=== PATIENT | male | born 1980 | race Caucasian/White ===

== ENCOUNTER 2019-03-03 07:08 | Day surgery (SDC) | payer OTHER, SELFPAY ==
[2019-03-03 07:38] VITALS: BP 142/82; PULSE 72; RESP 18; TEMP 36.7; O2SAT 97; BMI 30.7
--- NOTE | 2019-03-03 08:45 | SEP_PTH ---
PATIENT: FRANK GIPSON [place]: [facility] [place][id number] AGE/SX: 38/M ROOM: RE03/03/[address]: Dr. Gonzalo Childs MD : 1980 BED: DIS: 03/03/2019 SPEC #: [id number] RECD: 03/03/19 14:46 STATUS: АЛЕКСАНДР FELTON #: [id number] ELAINE: 03/03/19 08:[address]: Gonzalo Childs DEPT: SURGICAL PATHOLOGY RECD BY: Bessie Kelly ENTERED: 03/06/19 10:26 SP TYPE: SEPTUM OTHR DR: Dr. Alexey Rosenberg MD Tissues: A - Nasal septum, NOS B - Nasal turbinate, NOS C - Nasal turbinate, NOS Procedures: Decalcification bone/plaque Surgery Specimen Level III Surgery Specimen Level IV HEADER OPERATION: Septoplasty, submucous resection inferior turbinates PRE-OP DIAGNOSIS: Deviated nasal septum, hypertrophy nasal turbinates TISSUE SUBMITTED: A. Nasal septum contents, B. Contents of submucosal resection of left inferior turbinates, C. Contents of submucosal resection right inferior turbinates MICROSCOPIC DIAGNOSIS A. Nasal septum contents: Fragments of bone and cartilage, clinically deviated nasal septum. B. Contents of submucosal resection of left inferior turbinates: Fragments of respiratory mucosa with mild chronic inflammation. C. Contents of submucosal resection of right inferior turbinates: Scant fragment of respiratory mucosa with chronic inflammation. One fragment of mucosal tissue consistent with squamous papilloma. Fragments of squamous epithelium. Bacterial colonies consistent with actinomyces. See comment. SJ:tesha 03/09/19 COMMENT C. Clinical correlation and appropriate follow up are necessary. Case has been reviewed in consultation with Dr. Mancia who concurs with the above diagnosis. IDC:AM MICROSCOPIC DESCRIPTION Slides are reviewed. GROSS DESCRIPTION A - Received in fixative is one container labeled with the patient's name and designated nasal septum contents. The specimen consists of multiple irregular fragments of light bledsoe to white fragments of bone and cartilage that in aggregate measure 5.5 x 5 x 0.2 cm. The specimen is totally submitted in two cassette after decalcification. B - Received in fixative is one container labeled with the patient's name and designated contents of submucosal resection of left inferior turbinate. The specimen consists of multiple gritty fragments of light bledsoe soft tissue that in aggregate measure 1 x 0.5 x 0.1 cm. The specimen is submitted in its entirety in one cassette. C - Received in fixative is one container labeled with the patient's name and designated contents of submucosal resection of right inferior turbinate. The specimen consists of multiple gritty fragments of light bledsoe soft tissue that in aggregate measure 1 x 0.2 x <0.1 cm. The specimen is submitted in its entirety in one cassette. / AM:tesha 03/06/19 TC:3 CPT: 59970 x2, 59639, 18831
[2019-03-03] MEDS: Lidocaine 4% 50 ML Bottle (09:19)
[2019-03-03] MEDS: Oxymetazoline 0.05% 1 SPRAY SPRAY.BTL 15 SPRAY (09:19)
[2019-03-03] MEDS: Bacitracin 500 UNITS/GM PACKET (10:07)
--- NOTE | 2019-03-03 10:14 | PCM.OPRPT ---
Problem List (1) Deviated nasal septum Status: Chronic (2) Hypertrophy of nasal turbinates Status: Chronic Report of Operation Date of Procedure: 03/03/19 Pre-Operative Diagnosis: Deviated nasal septum, hypertrophy of inferior nasal turbinates Post-Operative Diagnosis: Same Surgery/Procedure Performed:: Septoplasty, bilateral submucous resection of inferior nasal turbinates Description of Surgical Findings:: Chiki is a 38-year-old male who presents with chronic nasal obstruction failing relief with appropriate medical therapy. Examination showed significant nasal septal deviation with a large spur posteriorly on the left as well as hypertrophy of the inferior turbinates. The above procedure was offered hopes of improvement of these complaints and he is eager to proceed. The risks, alternatives, potential complications, and benefits were discussed at length and any questions answered to the patient and/or caregiver's satisfaction. Witnessed informed consent was obtained in the office, and the patient and/or caregiver was agreeable to proceed. Procedure went as follows: The patient was identified in the preoperative holding and brought to the operating room, was placed under general anesthesia and intubated. When appropriate anesthesia was obtained, pledgets soaked in a 50-50 mixture of oxymetazoline and 4% topical lidocaine were placed to decongest the nasal mucosa. The nasal septum was then injected beginning on the left side with 1% lidocaine with 100,000 epinephrine for a total of 6 mL. The pledgets were then removed and the left nasal cavity examined. There was noted to be significant nasal septal deviation to the left. Using a 15 blade scalpel, a hemitransfixion incision was then made on the left side and using the [place] elevator a subperichondrial/periosteal flap was elevated. The septum was then transected at the bony cartilaginous junction and a similar flap raised on the contralateral side. Using a Ana forceps, the septum was then sharply transected superiorly and the deviated portions removed with a Bennie forceps. Any inferior bony spur was then removed with a chisel allowing for midline placement of the nasal septum. The hemitransfixion incision was then closed with interrupted 4-0 chromic gut suture followed by a 4-0 plain quilting suture to reapproximate the mucosal flaps. Beginning on the left side, the anterior aspect of the inferior turbinate was then injected with 1% lidocaine with 100,000 epinephrine for a total of 2.5 mL bilaterally. Again beginning on the left side a 15 blade scalpel was used to create a stab incision in the anterior aspect of the turbinate. A caudal elevator was then used to elevate a submucosal plane. Using the microdebrider, the anterior bony and intervening submucosal tissue was then removed resulting in reduction of the inferior turbinate. Similar procedure was then completed on the contralateral side. Andersen splints were then applied after coating with bacitracin ointment and secured to the columella with a single 3-0 Prolene suture. The patient was then returned to anesthesia, was revived and extubated having tolerated the procedure well without complications. Type of Anesthesia:: General Anesthesiologist: Johnny Barr Special Medications: none Specimen's removed: nasal septal and inferior turbinate contents Drains: none Estimated Blood Loss (mL): 25 mL Fluids Replaced: 1300 mL Grafts/Implants Used: Andersen splints - Complications none - Admit VTE Documentation VTE Present on Admission: No VTE Mechan Device Prophylaxis: SCD's VTE Pharm Prophylaxis ordered?: No
--- NOTE | 2019-03-03 10:19 | DCINST_ITS ---
- Discharge Diagnoses Current Active Problems: Current Active and Chronic Problems Deviated nasal septum (Chronic) Hypertrophy of nasal turbinates (Chronic) You will use the following diet at home:: Regular Discharge Activity: Return to Normal Activity Call your doctor if your incision/area has: Sudden Increased Bleeding Call your doctor if you observe: Fever of 101 or Higher, Uncontrolled pain Allergies/Adverse Reactions: Allergies antiseptic wipe Allergy (Uncoded 02/24/19 11:04) Rash environmental Allergy (Uncoded 02/24/19 11:04) Itching Medications to take at Discharge Levocetirizine Dihydrochloride [Xyzal] 5 mg PO QHS 02/24/19 Loratadine/Pseudoephedrine [Claritin-D 12 Hour Tablet] 1 ea PO PRN PRN 02/24/19 Primary Care Physician: Alexey Rosenberg MD [Primary Care Provider] - Test Results: Test results from this visit will be discussed in further detail at your follow- up appointment, if applicable. Please Follow Up With: Gonzalo Childs MD When: 5 days
[2019-03-03 10:25] VITALS: BP 140/83; BP 142/82; PULSE 91; RESP 14; TEMP 36.3; O2SAT 96
[2019-03-03 10:46] VITALS: BP 131/86; BP 142/82; PULSE 81; RESP 14; O2SAT 94
[2019-03-03 10:50] VITALS: BP 123/95; BP 142/82; PULSE 82; RESP 16; TEMP 36.6; O2SAT 97
[2019-03-03 11:20] VITALS: BP 142/82
== END 2019-03-03 11:46 | disposition home or self-care (01) ==
LOC: SDC 07:16 → AC 07:16
PROVIDERS: Family Provider Family Medicine; PCP Family Medicine; Referring Provider Otolaryngology; Visit Provider Otolaryngology
PROC: (CPT 30520; principal; 2019-03-03 08:30)
DX: J34.2 Deviated nasal septum (principal); J34.3 Hypertrophy of nasal turbinates; I10 Essential (primary) hypertension; Z79.899 Other long term (current) drug therapy
CPT/HCPCS: 00160; 30140; 30520; 88304; 88305; 88311; J7120; J2405

== ENCOUNTER 2020-12-13 20:44 | Emergency (ER) | payer OTHER, SELFPAY ==
[2020-12-13 20:44] VITALS: BP 130/88; PULSE 83; RESP 16; TEMP 37.4; O2SAT 93; BMI 31.0
--- NOTE | 2020-12-13 21:35 | EKG12_ITS ---
Test Reason : DYSRHYTHMIA Blood Pressure : / mmHG Vent. Rate : 087 BPM Atrial Rate : 087 BPM P-R Int : 160 ms QRS Dur : 092 ms QT Int : 366 ms P-R-T Axes : 062 007 044 degrees QTc Int : 440 ms Normal sinus rhythm Normal ECG Confirmed by JAMES MAY, JIN ([id number]), assistant film editor JAN URRUTIA ([id number]) on 12/17/2020 10:17:49 A M Referred By: CATHERINE Confirmed By:CRISTIANO RAMIREZ MD
--- NOTE | 2020-12-13 21:36 | EDS_ITS ---
HPI History of Present Illness Chief Complaint: Shortness of Breath Informant: patient Onset/Context/Timing Onset: Weeks (3) Context: gradual and - (Worse in the past 2 or 3 days, especially yesterday) Timing: Intermittent Quality: Positive for Wheezing Current Severity: Gone Maximum Severity: Moderate Worsened by: Exertion and Coughing Relieved by: Rest and Albuterol Associated Symptoms cough, rhinorrhea and clear sputum; Negative for fever, sore throat or chills Chest Pain: Positive for Tightness (Correlates with wheezing) Narrative Narrative: Patient with history of seasonal allergies and no asthma that he knows of presenting with wheezing and seasonal rhinitis symptoms along with watery eyes, sneezing, rhinorrhea, productive cough occasionally for 3 weeks that has been worse in the last couple days. He does not have any pleuritic pain but when he takes a deep breath it makes him cough more which leads to more dyspnea. Denies any DVT risk factors, no history of 1, no leg pain or swelling, no injuries. He has been fully vaccinated with the last of the 2 Covid vaccines being obtained 3-4 weeks ago. He never had Covid that he knows of and he has had no contact with anyone with Covid that he knows of recently. He has had no fevers and chills, but he has been watching his oxygen levels in the last couple days, with a home pulse oximeter. It was 90-94% today when he was feeling better, hence coming to the emergency department for further evaluation. He does see an loan review manager and has had allergy shots and takes allergy medication. [facility] Medical History (Updated 12/13/20 @ 22:[address] Eliel Britton MD) Hernia Seasonal allergies Home Medications levocetirizine 5 mg PO QHS 02/24/19 [History Last Taken Unknown] loratadine-pseudoephedrine 1 ea PO PRN PRN 02/24/19 [History Last Taken Unknown] acetaminophen 650 mg PO Q4H PRN PRN tab 03/03/19 [Rx Last Taken Unknown] ibuprofen 400 mg PO Q6H PRN PRN tab 03/03/19 [Rx Last Taken Unknown] prednisone 10 mg PO DAILY #48 tablet 12/13/20 [Rx Last Taken Unknown] Allergy/AdvReac Type Severity Reaction Status Date / Time antiseptic wipe Allergy Rash Uncoded 12/13/20 20:44 environmental Allergy Itching Uncoded 12/13/20 20:44 Social History Smoking Status: Never smoker ROS ROS ED Constitutional Constitutional ED: Denies chills or fever(s) Eyes Eyes: Denies change in vision or diplopia ENT ENT ED: Denies sore throat Cardiovascular Cardiovascular: Reports as per HPI and chest pain; Denies palpitations Respiratory/Chest Respiratory/Chest: Reports as per HPI, chest tightness, dyspnea, dyspnea on exertion and wheezing Gastrointestinal Gastrointestinal: Denies abdominal pain, diarrhea, nausea or vomiting Genitourinary Genitourinary ED: Denies dysuria or hematuria Musculoskeletal Musculoskeletal: Denies back pain or neck pain Integumentary Denies abscess or rash Neurologic Neurologic: Denies headache(s), paresthesias or weakness Psychiatric Psychiatric: Denies anxiety or suicidal thoughts EXAM Physical Exam Const Vital Signs: 12/13/20 20:44 12/13/20 21:52 Temperature 99.4 F H Temperature Source Temporal Pulse Rate 83 Respiratory Rate 16 Respiratory Effort Normal Respiratory Depth Normal Respiratory Pattern Normal Blood Pressure 130/88 H Blood Pressure Mean 102 Pulse Ox 93 Oxygen Delivery Method Room Air Positive well nourished and well developed General Appearance ED: well developed and NAD HEENT Reports moist mucous membranes normocephalic and atraumatic Eyes PERRL and EOMs intact bilaterally Neck full ROM and supple Resp normal respiratory effort and clear to auscultation bilaterally Cardio regular rate, regular rhythm and no murmurs Rate: Negative for tachycardic GI non-tender and non-distended Auscultation: normoactive bowel sounds Palpation: soft Back/Spine no CVA tenderness General Back: other FROM Extremity normal to inspection General Extremety ED: Negative for edema, pulses abnormal or tenderness General Extremity: Negative for edema or pulses abnormal Neuro oriented x3, CN's II-XII intact bilaterally and no sensory deficits noted Sensorium / Orientation: awake and alert Motor Exam: strength 5/5 throughout Skin no rashes or lesions noted and no wounds MDM MDM MDM Narrative Medical decision making narrative: Patient does have further improvement after a duo nebulizer treatment. He was also given Solu-Medrol, his work-up is negative including 1 view chest x-ray which on my interpretation is normal. His EKG is normal. I did a Covid swab to confirm that is negative which it is. I think this is probably reactive airway disease in relation to seasonal allergies. Will place him on steroids and advised that he follow-up with his loan review manager. I do not think he needs further testing for pulmonary embolus, his PERC score is 0. Lab Data Labs: Laboratory Results - last 24 hr 12/13/20 12/13/20 21:35 21:35 WBC 9.4 RBC 5.44 Hgb 16.4 Hct 47.8 MCV 87.9 MCH 30.1 MCHC 34.3 RDW Std Deviation 41.3 RDW Coeff of Graciela 12.9 Plt Count 281 MPV 8.8 Immature Gran % (Auto) 0.300 Neut % (Auto) 46.5 L Lymph % (Auto) 29.7 [place] % (Auto) 9.5 Eos % (Auto) 13.3 H Baso % (Auto) 0.7 Absolute Neuts (auto) 4.4 Absolute Lymphs (auto) 2.80 Nucleated RBC % 0 Sodium 139 Potassium 3.9 Chloride 104 Carbon Dioxide 31.0 Anion Gap 4 L BUN 20 H Creatinine 1.14 Estim Creat Clear Calc 84.41 Est GFR (MDRD) Af Amer 91 Est GFR (MDRD) Non-Af 75 BUN/Creatinine Ratio 17.5 Glucose 116 H Calcium 9.0 Radiography Chest X-Ray - ED: 1 View, Read by ED Physician, Normal, No Acute Disease and No Infiltrates Diagnostic Testing: Radiology Impression Chest X-Ray 12/13/20 21:52 IMPRESSION: No acute cardiopulmonary process. Electronically Signed: Gisel Varela MD at 22:04 EDT Tel , Service support , Discharge Plan Triage Chief Complaint: Shortness of Breath ED Provider: Eliel Britton Dx/Rx/DC Orders Clinical Impression: Reactive airway disease, Allergic rhinitis Instructions: ED General Allergic Reactions, ED Inhaler Use Prescriptions: New prednisone 10 MG tablet 10 mg PO DAILY Qty: 48 RF: 0 No Action loratadine-pseudoephedrine 1 EACH tablet extended release 12 hr 1 ea PO PRN PRN (Reason: Allergies) RF: 0 levocetirizine 5 MG tablet 5 mg PO QHS RF: 0 acetaminophen 325 MG tablet 650 mg PO Q4H PRN PRN (Reason: Mild-Moderate Pain (1-5)) RF: 0 ibuprofen 200 MG tablet 400 mg PO Q6H PRN PRN (Reason: Mod-Severe Pain (4-05/04)) RF: 0 Primary Care Provider: Alexey Rosenberg Referrals: Alexey Rosenberg MD [Primary Care Provider] - (Or your loan review manager within the next week or so) Disposition Disposition: Home, self care
--- NOTE | 2020-12-13 21:46 | ED.RN ---
NO OLD EKGS IN MUSE
[2020-12-13] MEDS: MethylPREDNISolone 125 MG/2 ML Vial IV (21:51)
--- NOTE | 2020-12-13 21:52 | RAD_ITS ---
STUDY: X-RAY CHEST REASON FOR EXAM: Male, 40 years old. Shortness of breath. TECHNIQUE: Single frontal view of the chest. COMPARISON: None. FINDINGS: There is no focal consolidation. Normal size heart. Normal mediastinum and kaya. Normal visualized pulmonary arteries. Normal visualized aortic arch and descending thoracic aorta. Normal visualized thoracic spine. Normal visualized ribs, clavicles, and shoulders. There is no demonstrated abnormality of the visualized soft tissue structures of the upper abdomen. RAD/Chest 1 View (Portable) IMPRESSION: No acute cardiopulmonary process. Electronically Signed: Gisel Varela MD at 22:04 EDT Tel , Service support ,
[2020-12-13 21:58] LABS: Absolute Neutrophil Count 4.4 X10^3/uL (2.0-7.7); Basophil# 0.07 X10^3/uL; Basophil% 0.7 % (0-1); Eosinophil# 1.25 X10^3/uL; Eosinophils% 13.3 % (0-5); Hematocrit 47.8 % (40-54); Hemoglobin 16.4 g/dL (13.0-16.5); Lymphocyte % 29.7 % (19-41); Mean Corp Hgb Conc 34.3 g/dL (32-36); Mean Corpuscular Hgb 30.1 pg (27.0-32.0); Mean Corpuscular Volume 87.9 fL (80-94); Mean Platelet Vol. 8.8 fl (6.2-12.0); Monocyte% 9.5 % (0-10); NRBC Flagged by Analyzer 0 % (0-5); Neutrophil # 4.38 X10^3/uL (2.7-7.7); Neutrophil % 46.5 % (47-70); Platelet Count 281 K/mm3 (150-450); RBC Distribution Width CV 12.9 % (11.6-14.6); RBC Distribution Width SD 41.3 fl (35.1-43.9); Red Blood Count 5.44 M/mm3 (4.6-6.2); White Blood Count 9.4 K/mm3 (4.4-11.0)
[2020-12-13 22:17] LABS: Anion Gap 4 (5-15); BUN 20 mg/dL (7-18); BUN/Creat Ratio 17.5 RATIO (10-20); Chloride 104 mmol/L (98-107); Creatinine, Serum 1.14 mg/dL (0.70-1.30); EST Glomerular Filtration Rate 75 mL/min (>60); Est Glom Filt Rate - Afr Amer 91 mL/min (>60); Estimated Creatinine Clearance 84.41 ml/min; Glucose 116 mg/dL (74-106); Potassium 3.9 mmol/L (3.5-5.1); Sodium Level 139 mmol/L (136-145)
[2020-12-13 23:06] VITALS: PULSE 78; O2SAT 94
== END 2020-12-13 23:07 | disposition home or self-care (01) ==
PROVIDERS: Emergency Provider Emergency Medicine; PCP Family Medicine
DX: J45.909 Unspecified asthma, uncomplicated (principal); Z20.822 Contact with and (suspected) exposure to COVID-19; Z79.52 Long term (current) use of systemic steroids
CPT/HCPCS: 71045; 80048; 85025; 87426; 93005; 96374; 99283

== ENCOUNTER 2021-05-15 09:47 | Observation (INO) | payer OTHER, SELFPAY ==
[2021-05-15] VITALS (11 sets, daily range): BP systolic 128–149; BP diastolic 70–86; PULSE 65–90; RESP 16–18; TEMP 36–37.2; O2SAT 92–99; BMI 31.6; BMI 30.9
--- NOTE | 2021-05-15 10:03 | EX.ED.DYSGE1 ---
HPI History of Present Illness Chief Complaint: Abd Pain Narrative Narrative: Patient presents with right lower quadrant abdominal pain for the past 48 hours. It started in the periumbilical region and migrated to the right lower quadrant. He has no flank pain he has no testicular pain he has no dysuria or hematuria. The pain is constant and achy. [facility] Medical History (Updated 05/15/21 @ 11:[address] Telly Ta MD) Hernia Seasonal allergies Home Medications levocetirizine 5 mg PO QHS 02/24/19 [History Last Taken Unknown] loratadine-pseudoephedrine 1 ea PO PRN PRN 02/24/19 [History Last Taken Unknown] acetaminophen 650 mg PO Q4H PRN PRN tab 03/03/19 [Rx Last Taken Unknown] ibuprofen 400 mg PO Q6H PRN PRN tab 03/03/19 [Rx Last Taken Unknown] prednisone 10 mg PO DAILY #48 tablet 12/13/20 [Rx Last Taken Unknown] Allergy/AdvReac Type Severity Reaction Status Date / Time antiseptic wipe Allergy Rash Uncoded 05/15/21 10:24 environmental Allergy Itching Uncoded 05/15/21 10:24 Social History Smoking Status: Never smoker ROS ROS ED ROS Narrative Past medical history: Reviewed, none other than seasonal allergies Medications: Reviewed Social history: Noncontributory Review of systems: All systems negative except as indicated General: No fever ENT: No upper airway congestion, normal voice Neck: No neck pain Cardiovascular: No chest pain Respiratory: No shortness of breath or cough Gastrointestinal: Abdominal pain as in HPI Genitourinary: No dysuria Musculoskeletal: Denies myalgias no difficulty with ambulation Skin: No rash Neurological: No memory loss, confusion or any focal weakness Psych: No recent behavioral changes Hematologic: No easy bleeding or easy bruising EXAM Physical Exam Narrative Exam Narrative: Physical exam General: Patient appears relatively comfortable lying in bed Head: Normocephalic, Atraumatic Eyes: Conjunctiva not pale ENT: Moist mucous membranes Neck: Supple, Nontender, No lymphadenopathy Cardiovascular: Regular rate, Regular rhythm Respiratory: No distress, CTA bilaterally Abdomen: Soft, he has right lower quadrant abdominal pain without any guarding or rebound. No epigastric pain. No left-sided abdominal pain. No right upper quadrant pain and negative Tabares's. Back: Nontender, Normal Inspection. Negative for: CVA tenderness Extremities: Nontender, No edema Skin: Normal color, No rash Neurological: Alert, Normal Strength, Normal Sensation Psychological: Normal affect Const Vital Signs: 05/15/21 09:47 Temperature 97.3 F L Temperature Source Temporal Pulse Rate 82 Respiratory Rate 18 Blood Pressure 144/82 H Blood Pressure Mean 102 Pulse Ox 98 Oxygen Delivery Method Room Air MDM MDM MDM Narrative Medical decision making narrative: Patient's work-up is consistent with appendicitis I talked to surgery for admission, I give the patient Zosyn. Lab Data Labs: Laboratory Results - last 24 hr 05/15/21 05/15/21 10:15 10:15 WBC 11.8 H RBC 5.26 Hgb 16.0 Hct 46.1 MCV 87.6 MCH 30.4 MCHC 34.7 RDW Std Deviation 41.3 RDW Coeff of Graciela 12.8 Plt Count 273 MPV 8.6 Immature Gran % (Auto) 0.300 Neut % (Auto) 70.4 H Lymph % (Auto) 16.6 L [place] % (Auto) 11.7 H Eos % (Auto) 0.7 Baso % (Auto) 0.3 Absolute Neuts (auto) 8.3 H Absolute Lymphs (auto) 1.95 Nucleated RBC % 0 Sodium 139 Potassium 4.2 Chloride 104 Carbon Dioxide 31.0 Anion Gap 4 L BUN 14 Creatinine 1.06 Estim Creat Clear Calc 90.78 Est GFR (MDRD) Af Amer 98 Est GFR (MDRD) Non-Af 81 BUN/Creatinine Ratio 13.2 Glucose 91 Calcium 9.1 Total Bilirubin 0.70 AST 17 ALT 29 Alkaline Phosphatase 107 Total Protein 7.9 Albumin 3.6 Globulin 4.3 H Albumin/Globulin Ratio 0.8 L Discharge Plan Triage Chief Complaint: Abd Pain ED Provider: Telly Ta Dx/Rx/DC Orders Clinical Impression: Acute appendicitis Prescriptions: No Action loratadine-pseudoephedrine 1 EACH tablet extended release 12 hr 1 ea PO PRN PRN (Reason: Allergies) RF: 0 levocetirizine 5 MG tablet 5 mg PO QHS RF: 0 acetaminophen 325 MG tablet 650 mg PO Q4H PRN PRN (Reason: Mild-Moderate Pain (1-5/10)) RF: 0 ibuprofen 200 MG tablet 400 mg PO Q6H PRN PRN (Reason: Mod-Severe Pain (4-05/04)) RF: 0 prednisone 10 MG tablet 10 mg PO DAILY Qty: 48 RF: 0 Primary Care Provider: Delvin Brown Referrals: Delvin Brown MD [Primary Care Provider] - Disposition Disposition: Acute Care [facility]
[2021-05-15 10:26] LABS: Absolute Lymphocyte Count 1.95 X10^3/uL (0.83-4.51); Absolute Neutrophil Count 8.3 X10^3/uL (2.0-7.7); Basophil# 0.03 X10^3/uL; Basophil% 0.3 % (0-1); Eosinophil# 0.08 X10^3/uL; Eosinophils% 0.7 % (0-5); Hematocrit 46.1 % (40-54); Lymphocyte # 1.95 X10^3/ul (0.83-4.51); Lymphocyte % 16.6 % (19-41); Mean Corp Hgb Conc 34.7 g/dL (32-36); Mean Corpuscular Hgb 30.4 pg (27.0-32.0); Mean Corpuscular Volume 87.6 fL (80-94); Mean Platelet Vol. 8.6 fl (6.2-12.0); Monocyte# 1.38 X10^3/uL; Monocyte% 11.7 % (0-10); NRBC Flagged by Analyzer 0 % (0-5); Neutrophil # 8.31 X10^3/uL (2.7-7.7); Neutrophil % 70.4 % (47-70); Platelet Count 273 K/mm3 (150-450); RBC Distribution Width CV 12.8 % (11.6-14.6); RBC Distribution Width SD 41.3 fl (35.1-43.9); Red Blood Count 5.26 M/mm3 (4.6-6.2); White Blood Count 11.8 K/mm3 (4.4-11.0)
[2021-05-15 10:48] LABS: ALB/GLOB Ratio 0.8 RATIO (0.9-2.4); AST(SGOT) 17 U/L (15-37); Alanine Aminotransfer ALT/SGPT 29 U/L (16-61); Albumin, Serum 3.6 g/dL (3.2-5.0); Alkaline Phosphatase 107 U/L (45-117); Anion Gap 4 (5-15); BUN 14 mg/dL (7-18); BUN/Creat Ratio 13.2 RATIO (10-20); Calcium,Total 9.1 mg/dL (8.5-10.1); Chloride 104 mmol/L (98-107); Creatinine, Serum 1.06 mg/dL (0.70-1.30); EST Glomerular Filtration Rate 81 mL/min (>60); Est Glom Filt Rate - Afr Amer 98 mL/min (>60); Estimated Creatinine Clearance 90.78 ml/min; Globulin 4.3 g/dL (2.2-4.2); Glucose 91 mg/dL (74-106); Potassium 4.2 mmol/L (3.5-5.1); Protein, Total 7.9 g/dL (6.4-8.2); Sodium Level 139 mmol/L (136-145)
--- NOTE | 2021-05-15 11:00 | CT_ITS ---
STUDY: CT ABDOMEN AND PELVIS WITH CONTRAST REASON FOR EXAM: Male, 40 years old. Right-sided abdominal pain for 48 hours. RADIATION DOSAGE (If Supplied By Facility): CTDIvol = ( 18.71 ) mGy, DLP = ( 976.25 ) mGycm TECHNIQUE: Transaxial images were obtained from the dome of the diaphragm to the symphysis pubis without oral contrast. IV 100mL Isovue-370 was administered. Sagittal and coronal images were reconstructed. Individualized dose optimization techniques were used for this CT. COMPARISON: None. FINDINGS: Minimal degree of increased linear markings at the lung bases suggest some mild basilar atelectasis. The visualized portions of the heart are within normal limits. There is decreased attenuation of the liver consistent with steatosis. Normal gallbladder and extrahepatic biliary system. Normal spleen. Normal pancreas. Normal bilateral adrenal glands. Normal right kidney. Normal left kidney. Normal visualized stomach. Normal small intestine. Normal colon. There is a tubular, thick-walled appendix (>7mm), consistent with acute appendicitis. Normal abdominal aorta. Normal inferior vena cava. Normal retroperitoneum. Normal urinary bladder. Minimal amount of free fluid is seen in the right side of the hemipelvis. Normal abdominal wall. There are mild degenerative changes of the visualized lumbar spine. CT/Abdomen/Pelvis W IV Cont ONLY IMPRESSION: Findings in comparison with noncomplicated acute appendicitis. Electronically Signed: Clay Pradhan MD at 12:32 EDT , Service support ,
[2021-05-15 11:31] LABS: Bacteria 0 SEEN /hpf (None Seen); Mucous, Urine 0 SEEN /hpf (<or=2+); Red Blood Cells-Urine 0 SEEN /hpf (0-5); Squamous Epithelial Cells - UA 0 SEEN /hpf (0-5); White Blood Cells 0 SEEN /hpf (0-5)
[2021-05-15 11:35] LABS: Color, Urine Yellow (Yellow); Glucose, Dipstick Normal (Normal); Ketone-Dipstick Negative (Negative); Leukocyte Esterase-Dipstick Negative /ul (Negative); Nitrite-Dipstick Negative (Negative); Occult Blood-Urine Negative /ul (Negative); Protein-Dipstick Negative (Negative); Urine Bilirubin Dipstick Negative (Negative); Urine Clarity Clear (Clear); Urine Urobilinogen Normal (Normal)
--- NOTE | 2021-05-15 11:55 | EX.PCM.CON.S ---
Assessment & Plan Assessment/Plan (1) Acute appendicitis: QUALIFIERS: Acute appendicitis type: unspecified acute appendicitis type Qualified Code(s): K35.80 - Unspecified acute appendicitis PLAN: This is a 40-year-old, otherwise healthy, male who presents with a 48-hour history of migratory?now right lower quadrant pain. Pain is been associated with some mild nausea and low-grade fevers. CT confirms evidence of acute, uncomplicated appendicitis with appendicolith. Physical exam is consistent with this diagnosis as well. I discussed with patient the diagnosis and the treatment options of antibiotics versus antibiotics and surgery. We discussed the significant crossover in prior studies of patients from antibiotics?only approach to surgery when appendicoliths present. I described this is my rationale for recommending surgical intervention. Patient is accepting of this recommendation and we will therefore plan for laparoscopic appendectomy. Given that he has had symptoms for 48 hours, I did discuss the possibility of intraoperative findings that may require a longer hospital stay including possible local contamination or postoperative ileus. Neuro: As needed acetaminophen, as needed Dilaudid Pulm/CV: No current issues FEN/GI: Keep n.p.o. for procedure Heme/ID: [id number] Endo: No current issues Proph: Mobilize as tolerated, SCDs Dispo: Admit to observation HPI Consult Data Date of Consult: 05/15/21 HPI Narrative HPI Narrative: FRANK GIPSON, is a 40 M who presents with a 48-hour history of acute onset abdominal pain. He states the pain began around his umbilicus and migrated to the right lower quadrant over the last day. Yesterday he states the pain was localized in his right lower quadrant but was associated with some bloating and minor nausea. Today states overall he felt better but the pain continued in his right lower quadrant so he decided to seek medical attention. His last p.o. intake was this morning around 8 AM when he had a bowl of cereal. He relates that he had a low-grade fever and some chills last night. ED work-up is notable for CBC demonstrating leukocytosis with left shift. CT of the abdomen and pelvis confirms acute, uncomplicated appendicitis with evidence of an appendicolith. [facility] Medical History (Updated 05/15/21 @ 11:[address] Zan García MD) Hernia Seasonal allergies Home Medications levocetirizine 5 mg PO QHS 02/24/19 [History Last Taken Unknown] [id number] [Trelegy Ellipta] 1 inh INHALATION DAILY 05/15/21 [History Last Taken Unknown] montelukast 10 mg PO DAILY 05/15/21 [History Last Taken Unknown] Allergy/AdvReac Type Severity Reaction Status Date / Time antiseptic wipe Allergy Rash Uncoded 05/15/21 10:24 environmental Allergy Itching Uncoded 05/15/21 10:24 Social History Smoking Status: Never smoker Physical Exam Const alert, oriented x3 and no apparent distress General Appearance: cooperative GI GI Narrative: Hirsute abdomen, nondistended, no scars. Soft, focally tender to palpation over McBurney's point. Negative obturator negative psoas Lab / Micro Data Result Diagrams: 05/15/21 10:15 05/15/21 10:15 Labs: Laboratory Results - last 24 hr 05/15/21 10:15: WBC 11.8 H, RBC 5.26, Hgb 16.0, Hct 46.1, MCV 87.6, MCH 30.4, MCHC 34.7, RDW Std Deviation 41.3, RDW Coeff of Graciela 12.8, Plt Count 273, MPV 8.6, Immature Gran % (Auto) 0.300, Neut % (Auto) 70.4 H, Lymph % (Auto) 16.6 L, Allen % (Auto) 11.7 H, Eos % (Auto) 0.7, Baso % (Auto) 0.3, Absolute Neuts (auto) 8.3 H, Absolute Lymphs (auto) 1.95, Nucleated RBC % 0 05/15/21 10:15: Sodium 139, Potassium 4.2, Chloride 104, Carbon Dioxide 31.0, Anion Gap 4 L, BUN 14, Creatinine 1.06, Estim Creat Clear Calc 90.78, Est GFR (MDRD) Af Amer 98, Est GFR (MDRD) Non-Af 81, BUN/Creatinine Ratio 13.2, Glucose 91, Calcium 9.1, Total Bilirubin 0.70, AST 17, ALT 29, Alkaline Phosphatase 107, Total Protein 7.9, Albumin 3.6, Globulin 4.3 H, Albumin/Globulin Ratio 0.8 L 10/21/21 11:25: Urine Color Yellow, Urine Clarity Clear, Urine pH 7.0, Ur Specific [place] 1.010, Urine Protein Negative, Urine Glucose (UA) Normal, Urine Ketones Negative, Urine Occult Blood Negative, Urine Nitrite Negative, Urine Bilirubin Negative, Urine Urobilinogen Normal, Ur Leukocyte Esterase Negative, Urine RBC 0 SEEN, Urine WBC 0 SEEN, Ur Squamous Epith Cells 0 SEEN, Urine Bacteria 0 SEEN, Urine Mucus 0 SEEN Charges/Coding Visit Charges Inpatient E&M: 02279 Init Hosp L2
--- NOTE | 2021-05-15 11:55 | ED.RN ---
Medications started by Jese Phelan RN. Verified by Nellie Hernandez RN.
--- NOTE | 2021-05-15 14:30 | NURSING ---
only vitals obtained d/t surgery calling and coming for pt now. in and accompanied pt to ac. pt hoping to go home after so belongings all sent with . pain rating a 3 at this time and up to void
--- NOTE | 2021-05-15 15:40 | APP_PTH ---
PATIENT: FRANK GIPSON LOC: MS2 U#:[id number] AGE/SX: 40/M ROOM: [facility] [place]/15/[address]: Dr. Zan García MD : 1980 BED: 1 DIS: 05/16/2021 SPEC #: [id number] RECD: 05/16/21 13:04 STATUS: АЛЕКСАНДР FELTON #: [id number] ELAINE: 05/15/21 15:[address]: Zan García DEPT: SURGICAL PATHOLOGY RECD BY: Antoinette Trivedi ENTERED: 05/16/21 13:25 SP TYPE: APPENDIX OTHR DR: Dr. Delvin Brown MD Tissues: Appendix, NOS Procedures: Surgery Specimen Level III HEADER OPERATION: Laparoscopic appendectomy PRE-OP DIAGNOSIS: Acute appendicitis TISSUE SUBMITTED: Appendix MICROSCOPIC DIAGNOSIS Appendix, appendectomy: Acute appendicitis and periappendicitis. SJ:tesha 05/19/2021 MICROSCOPIC DESCRIPTION Slides are reviewed. GROSS DESCRIPTION Received in fixative is one container labeled with the patient's name and designated appendix. The specimen consists of an L-shaped appendix measuring 8.5 cm in length and up to 1.2 cm in diameter. The attached periappendiceal adipose tissue measures up to 1.5 cm in width. No obvious perforation is identified. The serosal surface is congested and hemorrhage and covered with knox, purulent exudate. The lumen contains hemorrhagic, purulent material. No fecalith is identified. Bobj Developer sections are submitted in two cassettes. / KING:tesha 05/16/21 TC:2 CPT: 52368
[2021-05-15] MEDS: Lactated Ringers 1,000 ML 100 ML IV ×2 (17:15→19:20)
[2021-05-15] MEDS: Bupivacaine 0.25% 30 ML Vial (18:00)
--- NOTE | 2021-05-15 19:45 | PCM.OPRPT ---
Problems Associated Problem List Diagnoses (1) Acute appendicitis: Report of Operation Date of Procedure: 05/15/21 Pre-Operative Diagnosis: Acute appendicitis Post-Operative Diagnosis: Same Surgery/Procedure Performed:: Laparoscopic appendectomy Description of Surgical Findings:: ?Severely inflamed appendix without evidence of perforation Surgeon: Zan García supervisor mixing: None Type of Anesthesia: General/Supplemental Anesthesiologist: Gonzalo Farias Specimen's removed: Appendix Drains: None Estimated Blood Loss (mL): 15 Description of Procedure: After appropriate identification in the preoperative holding area, the patient was brought to the operating room and placed supine on the operating room table. Antibiotics had been preoperatively administered in the emergency room. Patient was then induced with general endotracheal anesthetic. The abdomen was prepped and draped in usual sterile fashion. Formal timeout was conducted to confirm both the patient and the procedure. A supraumbilical incision was made and carried down to the level of the fascia which was sharply opened. After opening the peritoneum in like fashion and confirming no adhesions to the underside of the peritoneum, a balloon trocar was placed and pneumoperitoneum was established to 15 mmHg. Patient was positioned in Trendelenburg with the left side down. 2 additional 5 mm trochars were placed in the left lower quadrant and suprapubic positions. The peritoneum was inspected and there are no signs of inadvertent injury from this Contreras entry. The appendix was visualized with severe dilation and adherence to the cecum laterally and the mesentery of the terminal ileum medially. A combination of blunt dissection and selective use of the harmonic scalpel was required to free the appendix from these adjacent structures. Even with meticulous dissection, there was evidence of a small serosal injury to the cecum. Ultimately I was able to free up the base of the appendix which was much softer than the edematous body. The mesoappendix was divided with application of a laparoscopic harmonic. I also partially opened the white line of Toldt and developed the avascular plane behind the cecum to permit passage of the stapler. Then the base of the appendix and the most distal portion of the cecum (attempting to close the serosal injury) was sealed and amputated with the use of an Endo DAVIDE stapler. The appendix was placed in an Endo Catch bag. The staple line was inspected for hemostasis. There was unfortunately still small serosal injury to the cecum. Therefore, I used a nearby epiploic appendage to flap over this area and tacked it into place with a 2-0 silk in a [id number] fashion taking seromuscular bites of the cecum. This closed over the serosal injury snugly but not with undue tension. After hemostasis was confirmed the appendix was removed from the umbilical port site. Pneumoperitoneum was then evacuated and the supraumbilical port site fascia was closed with 0 Vicryl in a [id number] fashion. The port sites were infiltrated with 15 mL local anesthetic (0.25% plain bupivacaine). The skin of each port site was closed with 4-0 Monocryl in a subcuticular fashion. Steri-Strips and OpSite's were applied as dressings. Patient tolerated procedure well without any apparent complications. They were awoken from general anesthetic without issue and transferred to post anesthesia care unit for ongoing recovery. Complications None Visit Charges Inpatient E&M: 57046 [facility] Hosp L2
[2021-05-15] MEDS: Acetaminophen 325 MG Tablet 650 MG PO (23:11)
[2021-05-15] MEDS: Polyethylene Glycol 3350 17 GM PACKET PO (23:11)
[2021-05-15] MEDS: Loratadine 10 MG Tablet PO (23:11)
--- NOTE | 2021-05-15 23:48 | PCS.PANDOC ---
PANDEMIC DOCUMENTATION INITIATED: Date: 03/10/2021 Time: 190
[2021-05-16 00:40] VITALS: BP 137/64; PULSE 93; RESP 16; TEMP 36.7; O2SAT 94
[2021-05-16] MEDS: 0.9% Normal Saline 1,000 ML 100 ML IV (01:10)
[2021-05-16 04:40] VITALS: BP 115/58; PULSE 77; RESP 16; TEMP 36.5; O2SAT 93
[2021-05-16 06:06] LABS: Absolute Lymphocyte Count 0.95 X10^3/uL (0.83-4.51); Absolute Neutrophil Count 6.5 X10^3/uL (2.0-7.7); Basophil# 0.01 X10^3/uL; Basophil% 0.1 % (0-1); Hematocrit 46.4 % (40-54); Hemoglobin 15.9 g/dL (13.0-16.5); Lymphocyte # 0.95 X10^3/ul (0.83-4.51); Lymphocyte % 11.8 % (19-41); Mean Corp Hgb Conc 34.3 g/dL (32-36); Mean Corpuscular Hgb 30.3 pg (27.0-32.0); Mean Corpuscular Volume 88.4 fL (80-94); Mean Platelet Vol. 8.6 fl (6.2-12.0); Monocyte# 0.57 X10^3/uL; Monocyte% 7.1 % (0-10); NRBC Flagged by Analyzer 0 % (0-5); Neutrophil % 80.6 % (47-70); Platelet Count 267 K/mm3 (150-450); RBC Distribution Width CV 12.6 % (11.6-14.6); RBC Distribution Width SD 41.1 fl (35.1-43.9); Red Blood Count 5.25 M/mm3 (4.6-6.2); White Blood Count 8.1 K/mm3 (4.4-11.0)
[2021-05-16 06:31] LABS: Anion Gap 7 (5-15); BUN 12 mg/dL (7-18); BUN/Creat Ratio 11.9 RATIO (10-20); Calcium,Total 8.9 mg/dL (8.5-10.1); Chloride 106 mmol/L (98-107); Creatinine, Serum 1.01 mg/dL (0.70-1.30); EST Glomerular Filtration Rate 86 mL/min (>60); Est Glom Filt Rate - Afr Amer 104 mL/min (>60); Estimated Creatinine Clearance 95.28 ml/min; Glucose 150 mg/dL (74-106); Sodium Level 139 mmol/L (136-145)
[2021-05-16] MEDS: Albuterol 2.5 MG/3 ML VIAL.NEB. INHALATION (06:45)
[2021-05-16] MEDS: Budesonide Respules 0.5 MG/2 ML AMPUL.NEB. INHALATION (06:45)
[2021-05-16 06:46] VITALS: PULSE 79; RESP 16
--- NOTE | 2021-05-16 07:36 | PCM.DC ---
Discharge Instructions Diet Discharge Diet: No restrictions Activity Discharge Activity: May Not Drive (While taking narcotic) and May Shower May shower in (days): 0 Lifting Restrictions: No lifting greater than 15 pounds for 2 weeks following surgery Dressing / Incision Call your doctor if your incision/area has: Continuous Slow Oozing, Sudden Increased Bleeding, Increased Pain/ Swelling, Increased Redness and Foul Smelling Discharge Call your doctor if you observe: Fever of 101 or Higher Remove Dressing in: Outer 1day Cleanse incision/area with: Soap & Water Additional Dressing/Incision Instructions:: Leave Steri-Strips intact until clinic follow-up Follow Up Care Please Follow Up With: Zan Gacría MD When: 7-10 days postop Test Results: Test results from this visit will be discussed in further detail at your follow-up appointment, if applicable. Discharge Plan Admission Admit Date/Time: 05/15/21 12:05 Primary Reason for Your Visit: Acute appendicitis Attending Provider: Zan García Primary Care Provider: Delvin Brown Discharge Orders/Prescriptions Prescriptions: New oxycodone 5 mg Tablet 5 mg PO Q4H PRN PRN (Reason: Pain Score 4-5) 3 Days Qty: 14 RF: 0 Continued levocetirizine 5 MG tablet 5 mg PO QHS RF: 0 montelukast 10 mg tablet 10 mg PO DAILY RF: 0 Trelegy Ellipta 100-62.5-25 mcg blister with device 1 inh INHALATION DAILY RF: 0 Referrals / Follow Up: Delvin Brown MD [Primary Care Provider] - Disposition Discharge Orders: Discharge Patient (Routine); Ordered 05/16/21 Ordered By: Dr. Zan García
--- NOTE | 2021-05-16 07:40 | PCM.DC.SUM ---
Providers Date of Admission: 05/15/21 Primary Care Physician: Dr. Delvin Brown MD Reason For Visit: APPENDICITIS Diagnosis Discharge Diagnosis (1) Acute appendicitis: Status: Acute Code(s): K35.80 - Unspecified acute appendicitis Qualifiers: Acute appendicitis type: unspecified acute appendicitis type Qualified Code(s): K35.80 - Unspecified acute appendicitis Plan: Follow-up with general surgery in 7 to 10 days for wound check and pathology review Medications at Discharge Home Medications levocetirizine 5 mg PO QHS 02/24/19 Trelegy Ellipta 1 inh INHALATION DAILY 05/15/21 montelukast 10 mg PO DAILY 05/15/21 oxycodone 5 mg PO Q4H PRN PRN 3 Days #14 tab 05/16/21 Hospital Course Operations appendectomy Summary of Care Provided Hospital Course: Patient is a 40-year-old male who is admitted on 05/15/2021 after he was diagnosed with acute appendicitis. He underwent immediate IV antibiotic therapy and was taken to the operating room later that day for a laparoscopic appendectomy. The case proceeded uneventfully, but given the late hour, the patient was observed overnight. Immediately postoperatively he tolerated a liquid diet. Postoperative day 1 he was advanced to a regular diet and his exam was reassuring. He tolerated this advance well and managed his postoperative pain with oral medications. With this progress, discharge was granted. Physical Exam Const alert, oriented x3 and no apparent distress General Appearance: cooperative Resp normal respiratory effort GI GI Narrative: Nondistended, operative sites intact with mild bloody drainage to supraumbilical port site. Appropriately tender about incisions otherwise soft with palpation. Weight / BMI Weight Weight: 209 lb 1.6 oz Body Mass Index (BMI) 30.9 ABG / Lab / Microbiology Data Result Diagrams: 05/16/21 05:54 05/16/21 05:54 Laboratory: Laboratory Results - last 24 hr 05/15/21 10:15: WBC 11.8 H, RBC 5.26, Hgb 16.0, Hct 46.1, MCV 87.6, MCH 30.4, MCHC 34.7, RDW Std Deviation 41.3, RDW Coeff of Graciela 12.8, Plt Count 273, MPV 8.6, Immature Gran % (Auto) 0.300, Neut % (Auto) 70.4 H, Lymph % (Auto) 16.6 L, [place] % (Auto) 11.7 H, Eos % (Auto) 0.7, Baso % (Auto) 0.3, Absolute Neuts (auto) 8.3 H, Absolute Lymphs (auto) 1.95, Nucleated RBC % 0 05/15/21 10:15: Sodium 139, Potassium 4.2, Chloride 104, Carbon Dioxide 31.0, Anion Gap 4 L, BUN 14, Creatinine 1.06, Estim Creat Clear Calc 90.78, Est GFR (MDRD) Af Amer 98, Est GFR (MDRD) Non-Af 81, BUN/Creatinine Ratio 13.2, Glucose 91, Calcium 9.1, Total Bilirubin 0.70, AST 17, ALT 29, Alkaline Phosphatase 107, Total Protein 7.9, Albumin 3.6, Globulin 4.3 H, Albumin/Globulin Ratio 0.8 L 05/15/21 11:25: Urine Color Yellow, Urine Clarity Clear, Urine pH 7.0, Ur Specific [place] 1.010, Urine Protein Negative, Urine Glucose (UA) Normal, Urine Ketones Negative, Urine Occult Blood Negative, Urine Nitrite Negative, Urine Bilirubin Negative, Urine Urobilinogen Normal, Ur Leukocyte Esterase Negative, Urine RBC 0 SEEN, Urine WBC 0 SEEN, Ur Squamous Epith Cells 0 SEEN, Urine Bacteria 0 SEEN, Urine Mucus 0 SEEN 05/16/21 05:54: WBC 8.1, RBC 5.25, Hgb 15.9, Hct 46.4, MCV 88.4, MCH 30.3, MCHC 34.3, RDW Std Deviation 41.1, RDW Coeff of Graciela 12.6, Plt Count 267, MPV 8.6, Immature Gran % (Auto) 0.400, Neut % (Auto) 80.6 H, Lymph % (Auto) 11.8 L, [place] % (Auto) 7.1, Eos % (Auto) 0.0, Baso % (Auto) 0.1, Absolute Neuts (auto) 6.5, Absolute Lymphs (auto) 0.95, Nucleated RBC % 0 05/16/21 05:54: Sodium 139, Potassium 4.0, Chloride 106, Carbon Dioxide 26.0, Anion Gap 7, BUN 12, Creatinine 1.01, Estim Creat Clear Calc 95.28, Est GFR (MDRD) Af Amer 104, Est GFR (MDRD) Non-Af 86, BUN/Creatinine Ratio 11.9, Glucose 150 H, Calcium 8.9 Radiography Diagnostic Testing: Radiology Impression Abdomen/Pelvis CT 05/15/21 11:00 IMPRESSION: Findings in comparison with noncomplicated acute appendicitis. Electronically Signed: Clay Pradhan MD at 12:32 EDT , Service support , D/C Instructions Discharge Diet: No restrictions May shower in (days): 0 Call your doctor if your incision/area has: Continuous Slow Oozing, Sudden Increased Bleeding, Increased Pain/ Swelling, Increased Redness and Foul Smelling Discharge Call your doctor if you observe: Fever of 101 or Higher Cleanse incision/area with: Soap & Water Additional Dressing/Incision Instructions: Leave Steri-Strips intact until clinic follow-up Please Follow Up With: Zan García MD When: 7-10 days postop Meaningful Use Info Meaningful Use Diagnoses (Choose all that apply): None applicable Discharge Plan Admission Admit Date/Time: 05/15/21 12:05 Primary Reason for Your Visit: Acute appendicitis Attending Provider: Zan García Primary Care Provider: Delvin Brown Discharge Orders/Prescriptions Prescriptions: New oxycodone 5 mg Tablet 5 mg PO Q4H PRN PRN (Reason: Pain Score 4-5) 3 Days Qty: 14 RF: 0 Continued levocetirizine 5 MG tablet 5 mg PO QHS RF: 0 montelukast 10 mg tablet 10 mg PO DAILY RF: 0 Trelegy Ellipta 100-62.5-25 mcg blister with device 1 inh INHALATION DAILY RF: 0 Referrals / Follow Up: Delvin Brown MD [Primary Care Provider] - Disposition Disposition (needs filled in before D/C Order can be placed): Home, Self Care Charges/Coding Visit Charges Inpatient E&M: 58781 Disch Hosp
[2021-05-16 08:41] VITALS: BP 127/75; PULSE 87; RESP 14; TEMP 36.9; O2SAT 100
[2021-05-16] MEDS: Montelukast 10 MG Tablet PO (10:13)
[2021-05-16] MEDS: Polyethylene Glycol 3350 17 GM PACKET PO (10:13)
[2021-05-16 11:54] VITALS: BP 124/71; PULSE 83; RESP 14; TEMP 36.9; O2SAT 100
[2021-05-16 14:11] VITALS: BP 126/67; PULSE 79; RESP 14; TEMP 36.9; O2SAT 96
== END 2021-05-16 16:15 | disposition home or self-care (01) ==
LOC: ED 11:33 → AC 11:44 → ED 12:10 → MS2 12:12
PROVIDERS: Physician Assistant; Admitting Provider Surgery; Emergency Provider Emergency Medicine; PCP Family Medicine; Visit Provider Surgery
PROC: 0DTJ4ZZ Resection of Appendix, Percutaneous Endoscopic Approach (ICD-10-PCS; CPT 44970; principal; 2021-05-15 15:20)
DX: K35.80 Unspecified acute appendicitis (principal)
CPT/HCPCS: 00840; 44970; 36415; 74177; 80048; 80053; 81001; 85025; 88304; 93005; 94640; 96361; 96365; 96366; 99218; 99251; 99284; J7030; J7120; Q9967; G0378; G0463; J2405